=== PATIENT | male | born 1950 | race Caucasian/White ===

== ENCOUNTER → 2020-09-01 | Emergency (ER) | payer BC, OTHER ==
[~2020-09-01] VITALS: Ht 182.9 cm; Wt 90.7 kg
[~2020-09-01] MED LIST: BACITRACIN 1 GM OINT TP ONE; DIPH-TET-PERTUS Vaccine 0.5 ML VIAL (ADACEL) I.M. ONE; LIDOCAINE/EPI 1% 1:100000 20 ML VIAL INJ ONE
[2020-09-01 17:33] VITALS: BP_SYST 157
[2020-09-01 21:06] LABS: BASOPHILS % (AUTO) 0.5 % (0.0-2.0); EOSINOPHILS % (AUTO) 0.6 % (0.0-4.0); HEMATOCRIT 43.9 % (36-54); HEMOGLOBIN 14.9 g/dL (14.0-18.0); LYMPHOCYTES # (AUTO) 0.7 K/uL (1.0-5.5); LYMPHOCYTES % (AUTO) 9.6 % (20.5-51.5); MEAN CORPUSCULAR HEMOGLOBIN 32 pg (27-31); MEAN CORPUSCULAR HGB CONC 34 % (32-36); MEAN CORPUSCULAR VOLUME 93 fL (79.0-98.0); MONOCYTES # (AUTO) 0.5 K/uL (0.0-1.0); MONOCYTES % (AUTO) 6.4 % (1.7-9.3); NEUTROPHILS # (AUTO) 6.1 K/uL (1.8-7.7); NEUTROPHILS % (AUTO) 82.9 % (40.0-70.0); PLATELET COUNT (AUTO) 184 K/uL (130-430); RED BLOOD CELL COUNT(AUTO) 4.72 MIL/uL (4.2-6.2); RED CELL DISTRIBUTION WIDTH 13.1 % (9.0-15.0); WHITE BLOOD COUNT (AUTO) 7.3 K/uL (4.8-10.8)
[2020-09-01 21:13] LABS: CALCIUM 8.5 mg/dL (8.4-11.0); CREATININE 1.05 mg/dL (0.55-1.30)
[2020-09-01 21:16] LABS: PROTHROMBIN TIME 10.6 SECS (9.5-12.5)
[2020-09-01 21:19] LABS: ALBUMIN 4.1 g/dL (3.4-4.8); TOTAL BILIRUBIN 0.9 mg/dL (0.0-1.0)
[2020-09-01 22:03] VITALS: BP_SYST 138
== END | disposition left against medical advice (07) ==
LOC: SED 17:25
DX: S06.5X0A Traumatic subdural hemorrhage without loss of consciousness, initial encounter (principal); S01.01XA Laceration without foreign body of scalp, initial encounter; I10 Essential (primary) hypertension; Z20.822 Contact with and (suspected) exposure to COVID-19; W18.39XA Other fall on same level, initial encounter; Y93.89 Activity, other specified; Y92.89 Other specified places as the place of occurrence of the external cause; Y99.8 Other external cause status
CPT/HCPCS: 36415; 70450-TC; 71045; 76376; 80053; 84484; 85025; 85610-TC; 85730-TC; 90715; 93005; 99285